=== PATIENT | male | born 1975 | race Caucasian/White ===

== ENCOUNTER → 2018-11-24 | Emergency (ER) | payer SELFPAY ==
[~2018-11-24] VITALS: Ht 177.8 cm; Wt 88.5 kg
--- OUTSIDE RECORDS SUMMARY | 2018-11-24 13:58 | XMS REPORT | Summary of Care ---
Author Author KRISTY MINOR Organization Unknown Address Unknown Phone Unavailable Care Team Providers Care Van Loader Name Role Phone KRISTY MINOR Unavailable Unavailable SHANNAN HENDERSON [place], JONES Dutta Unavailable Unavailable JONES CAMPBELL M.D. Unavailable Unavailable Unavailable Unavailable Functional Status Name Dates Details Functional status health issues are not documented Status: Name Dates Details Cognitive status health issues are not documented Status: Problems Name Dates Details Tremor (781.0, R25.1) Status: Active Blood pressure elevated without history of HTN (796.2, R03.0) Status: Active Epilepsy (345.90, G40.909) Status: Active Overweight (BMI 25.0-29.9) (278.02, E66.3) Status: Active On carbamazepine therapy (V58.69, Z79.899) Status: Active Encounter to establish care (V65.8, Z76.89) Status: Active Medications Name Dates Details TEGretol 200 MG Oral Tablet * Start : 11-Oct-2017 Active Amoxicillin CAPS * Refills: 0 Active Ibuprofen CAPS * Refills: 0 Active Allergies and Adverse Reactions Name Dates Details No Known Drug Allergies (Allergy) Status: Active Past Medical History Name Dates Details History of seizure (V12.49, Z87.898) Status: Resolved Procedures Procedure Dates Details [QLH] CBC (INCLUDES DIFF/PLT) Date: 11-Oct-2017 [QLH] CMP W/EGFR Date: 11-Oct-2017 [QLH] VITAMIN B12 Date: 11-Oct-2017 [QLH] TSH, 3RD GENERATION W/REFLEX TO FT4 Date: 11-Oct-2017 [QLH] URINALYSIS, COMPLETE Date: 11-Oct-2017 [QL] LIPID PANEL Date: 11-Oct-2017 [QLH] MAGNESIUM Date: 11-Oct-2017 [Q] CARBAMAZEPINE AND METABOLITE Date: 11-Oct-2017 History of no history of surgery Completed Immunization Name Dates Details Immunizations not documented Family History Name Dates Details Family history of hypertension (V17.49, Z82.49) Status: Active Family history of diabetes mellitus (V18.0, Z83.3) Status: Active Name Dates Details Family history of hypertension (V17.49, Z82.49) Status: Active Social History Name Dates Details - Status: Name Dates Details Never smoker Vital Signs Date Test Result Details :05 BP Systolic 150 mm[Hg] Status: BP Diastolic 106 mm[Hg] Status: Heart Rate 73 /min Status: :03 BP Systolic 150 mm[Hg] Status: Comments: Location: LUE; Position: Sitting BP Diastolic 105 mm[Hg] Status: Comments: Location: LUE; Position: Sitting Heart Rate 68 /min Status: Height 70 in Status: Weight 205.4375 lb Status: Body Mass Index Calculated 29.48 kg/m2 Status: Body Surface Area Calculated 2.11 m2 Status: Temperature 97.7 f Status: Comments: Method: Temporal Respiration Rate 16 /min Status: Results Date Description Value Details Results not documented Plan of Care Name Dates Details Planned Observations Planned Goals not documented Planned Encounters Appointment; KRISTY VASQUEZ P.A. On: 18-Oct-2017 10:00 Interventions Provided Labs/Procedures/Imaging* [Q] CARBAMAZEPINE AND METABOLITE; To Be Done: 11 Oct 2017 * [QLH] CBC (INCLUDES DIFF/PLT); To Be Done: 11 Oct 2017 * [QLH] CMP W/EGFR; To Be Done: 11 Oct 2017 * [QLH] LIPID PANEL; To Be Done: 11 Oct 2017 * [QLH] MAGNESIUM; To Be Done: 11 Oct 2017 * [QLH] TSH, 3RD GENERATION W/REFLEX TO FT4; To Be Done: 11 Oct 2017 * [QLH] URINALYSIS, COMPLETE; To Be Done: 11 Oct 2017 * [QLH] VITAMIN B12; To Be Done: 11 Oct 2017 Plan* Labs ordered for eval of tremor. * Discussed that tremor can be a side effect of tegretol. Recommend calling neurologist to advise on tremor and try to get appt. with neurologist this week or next week. Pt expressed understanding. * Follow up in 1 week. ER if symptoms change/worsen. * Monitor BP and bring readings to f/u. * Discussed restrictions due to epilepsy (no driving, etc); pt states he already follows these restrictions as advised by neurologist Instructions Name Dates Details Instructions not documented Encounters Appointment; KRISTY VASQUEZ P.A. Encounter Diagnosis: Problem not documented On: 11-Oct-2017 15:00
--- OUTSIDE RECORDS SUMMARY | 2018-11-24 13:58 | XMS REPORT | Continuity of Care Document ---
Author Author [facility] Interface Address Unknown Phone Unavailable Problems Problem Status Onset Date Classification Date Reported Comments Source Acute maxillary sinusitis 01/25/2016 Diagnosis 02/27/2016 [facility] Allergic rhinitis 01/25/2016 Diagnosis 02/27/2016 [facility] Eustachian tube disorder 01/25/2016 Diagnosis 02/27/2016 [facility] Eustachian Tube Disorder Problem 02/27/2016 [facility] Acute Maxillary Sinusitis Problem 02/27/2016 [facility] Allergic Rhinitis Problem 02/27/2016 [facility] Medications Medication Details Route Status Patient Instructions Ordering Provider Order Date Source Amoxicillin 875 MG / Clavulanate 125 MG Oral Tablet amoxicillin 875 mg-potassium clavulanate 125 mg tablet TK 1 T PO BID WITH MEALS Active [facility] 12 HR Carbamazepine 200 MG Extended Release Oral Tablet carbamazepine ER 200 mg tablet,extended release,12 hr TK 2 TS PO TID Active [facility] levocetirizine dihydrochloride 5 MG Oral Tablet levocetirizine 5 mg tablet TK 1 T PO QHS Active [facility] Prednisone 20 MG Oral Tablet prednisone 20 mg tablet TK 1 T PO QD WITH MEALS Active [facility] Tegretol Tegretol Active [facility] Allergies, Adverse Reactions, Alerts Substance Category Reaction Severity Reaction type Status Date Reported Comments Source Immunizations Immunization Date Given Site Status Last Updated Comments Source Results Order Name Results Value Reference Range Date Interpretation Comments Source Vital Signs Vital Sign Value Date Comments Source Diastolic (mm Hg) 80 01/25/2016 [facility] Height 70 01/25/2016 [facility] Systolic (mm Hg) 130 01/25/2016 [facility] Weight 230 01/25/2016 [facility] Encounters Location Location Details Encounter Type Encounter Number Reason For Visit Attending Provider ADM Date DC Date Status Source [place] - [facility] - [id number] Juany Maza, [employer]: [address] [address], Ph. [id number] Juany Shaunna 01/25/2016 [facility] Procedures Procedure Code Date Perfomer Comments Source
--- OUTSIDE RECORDS SUMMARY | 2018-11-24 13:58 | XMS REPORT ---
Author Author [facility] Address Unknown Phone Unavailable Care Team Providers Care [employer] Driver Name Role Phone Unavailable Unavailable Payers Payer Name Policy Type Policy Number Effective Date Expiration Date Problems This patient has no known problems. Allergies, Adverse Reactions, Alerts Allergy Name Allergy Type Status Severity Reaction(s) Onset Date Inactive Date Treating Clinician Comments No Known Allergies DA Active U 2015-12-28 00:00:00 Medications This patient has no known medications.
--- OUTSIDE RECORDS SUMMARY | 2018-11-24 13:58 | XMS REPORT | Encounter Summary ---
Author Organization Unknown Address [address] [place] [id number] Phone [phone] Reason for Visit Medical Complaint; cough, sinus drainage x 4 days Instructions 1. Acute maxillary sinusitis amoxicillin 875 mg-potassium clavulanate 125 mg tablet prednisone 20 mg tablet 2. Allergic rhinitis levocetirizine 5 mg tablet 3. Eustachian tube disorder Discussion Note: None recorded. Patient educational handouts: No information available. Plan of Care Patient Instructions Take antibiotic as prescribed. Handwashing. Increase fluid intake and plenty of rest. May take tynenol/motrin for pain. may use cloraseptic throat spray for sore throat. If no improvement in 3 days, or worsening of symptoms, see primary care physician or call clinic. Reminders Provider Appointments None recorded. Lab None recorded. Referral None recorded. Procedures None recorded. Surgeries None recorded. Imaging None recorded. Medications Name Start Date amoxicillin 875 mg-potassium clavulanate 125 mg tablet TK 1 T PO BID WITH MEALS carbamazepine ER 200 mg tablet,extended release,12 hr TK 2 TS PO TID levocetirizine 5 mg tablet TK 1 T PO QHS prednisone 20 mg tablet TK 1 T PO QD WITH MEALS Tegretol Medications Administered None recorded. Vitals Height Weight BMI Blood Pressure 5 ft 10 in 230 lbs 33 130/80 Lab Results None recorded. Allergies Name Reaction Severity Onset NKDA Problems Name Status Onset Date Source Eustachian Tube Disorder Active Encounter Acute Maxillary Sinusitis Active Encounter Allergic Rhinitis Active Encounter Procedures None recorded. Vaccine List None recorded. Social History Smoking Status Never Smoker Past Encounters 01/25/2016 Acute Maxillary Sinusitis; Allergic Rhinitis; Eustachian Tube Disorder ANGELES Quick: [address] [place] [address], Ph. History of Present Illness [id number] Reported By: Patient HPI: Location: head/sinuses. Quality: productive cough, colored phlegm, nasal/sinus congestion. Duration: 4days. Severity: moderate. Onset/Timing: gradual. Context: no sick contacts, no foreign travel, non-smoker. Modifying factors: OTC medication. Associated Symptoms: no sputum production, no shortness of breath, no wheezing, no change in number of pillows needed to sleep at night, no sweats, no significant weight gain, no significant weight loss, no morning cough, no vomiting, no diarrhea, no rash, no nausea, sore throat Review of Systems Basic Reported By: Patient Constitutional: Constitutional: no fever Eyes: Eyes: no eye complaints Omif-Xkai-Jvhgw-Throat: Ears: no ear complaints. Nose: nose/sinus problems. Mouth/Throat: no bleeding gums, no mouth complaints, no teeth problems, sore throat Cardiovascular: Cardiovascular: no chest pain, no shortness of breath, no known heart murmur Respiratory: Respiratory: no wheezing, no shortness of breath, cough Gastrointestinal: Gastrointestinal: no abdominal pain, no vomiting / diarrhea Genitourinary: Genitourinary: no urinary complaints, no discharge Musculoskeletal: Musculoskeletal: no muscle aches, no muscle weakness, no arthralgias/joint pain, no back pain Skin: Skin: no abnormal / changing mole, no jaundice, no rashes Neurologic: Neurologic: no loss of consciousness, no weakness, no numbness, no seizures, no dizziness, no headaches Physical Exam Adult Basic, Adult Male Complete Constitutional: General Appearance: healthy-appearing, well-nourished, well-developed. Level of Distress: NAD. Ambulation: ambulating normally Psychiatric: Mental Status: active and alert. Orientation: to time, to place, to person Eyes: Lids and Conjunctivae: non-injected, no discharge, no pallor. Pupils: PERRLA. Corneas: grossly intact. EOM: EOMI. Lens: clear. Sclerae: non-icteric. Vision: acuity grossly intact, peripheral vision grossly intact Whh-Jrmt-Rzqkq-Throat: Ears: no lesions on external ear, no outer ear tenderness, EACs clear, TMs clear, middle ear fluid. Hearing: no hearing loss. Nose: no lesions on external nose, nares patent, no septal deviation, nasal passages clear, sinus tenderness, nasal discharge--purulent, post nasal drip. Lips, Teeth, and Gums: no mouth or lip ulcers, no bleeding gums, normal dentition. Oropharynx: moist mucous membranes, no exudates, tonsils not enlarged, erythema Neck: Neck: supple, trachea midline, no masses, FROM. Lymph Nodes: no supraclavicular LAD, anterior cervical LAD. Thyroid: no enlargement, non-tender, no nodules Lungs: Respiratory effort: no dyspnea, no tachypnea, no use of accessory muscles, no intercostal retractions. Auscultation: breath sounds normal, good air movement Cardiovascular: Heart Auscultation: RRR, no murmurs
== END | disposition left against medical advice (07) ==
LOC: ER 13:56
DX: M54.5 Low back pain (principal); G89.29 Other chronic pain